=== PATIENT | male | born 1995 | race Caucasian/White ===

== ENCOUNTER 2017-08-01 14:31 | Emergency (ER) | payer MEDICAID ==
[~2017-08-01] VITALS: Ht 177.8 cm; Wt 81.6 kg
--- NOTE | 2017-08-01 15:20 | NUR ---
PATIENT WAS MSE BY DR WAY ROOM 03A
[2017-08-01] MEDS ORDERED: CEPHALEXIN MONOHYDRATE 500 MG CAPSULE PO ONE (16:00)
[2017-08-01] MEDS ORDERED: HYDROCODONE/APAP 5-325MG TABLET PO ONE (16:00)
[2017-08-01] MEDS ORDERED: CEPHALEXIN MONOHYDRATE 500 MG CAPSULE ONE (16:09)
[2017-08-01] MEDS ORDERED: HYDROCODONE/APAP 5-325MG TABLET ONE (16:10)
[2017-08-01 16:13] VITALS: BP 131/77
--- NOTE | 2017-08-01 16:14 | NUR ---
Patient discharged to home in stable conditon. Written and verbal after care instructions given by DR Law. Patient verbalizes understanding of instructions. Dr Law made patient aware of test results.
== END 2017-08-01 16:17 | disposition home or self-care (01) ==
LOC: ER 14:33
DX: S51.841A Puncture wound with foreign body of right forearm, initial encounter (principal); W45.8XXA Other foreign body or object entering through skin, initial encounter; Y93.89 Activity, other specified; Y92.69 Other specified industrial and construction area as the place of occurrence of the external cause; Y99.0 Civilian activity done for income or pay
CPT/HCPCS: 73090; A4663